=== PATIENT | female | born 1950 | race Two or more races ===

== ENCOUNTER 2023-04-15 05:00 | Day surgery (SDC) | payer OTHER ==
[~2023-04-15] VITALS: Ht 154.9 cm; Wt 59.0 kg
[~2023-04-15 05:00] MED LIST: LIPITOR20 MG PO; MULTIPLE VITAM1 EAC2 PO; PRILOSEC10 MG PO; ZOLOFT50 MG PO
[2023-04-15] MEDS ORDERED: OXYC1TAB9 PO (09:22)
== END 2023-04-15 13:10 | disposition home or self-care (01) ==
LOC: CIR.AMB 05:00
PROVIDERS: ATTEND Surgery
DX: K64.2 Third degree hemorrhoids (principal); Z88.2 Allergy status to sulfonamides; Z88.1 Allergy status to other antibiotic agents

== ENCOUNTER 2023-04-25 04:46 | Emergency (ER) | payer OTHER ==
[~2023-04-25] VITALS: Ht 154.9 cm; Wt 59.0 kg
[~2023-04-25 04:46] MED LIST changes: +OXYC1TAB9 PO
[2023-04-25 07:24] LABS: HEMATOCRIT 39.5 % (36.0-45.00); HEMOGLOBIN 13.5 g/dL (12.0-15.00); MEAN CELL VOLUME 87.9 fL (80.00-100.00); MEAN CORPUSCULAR HGB CONC 34.1 g/dl (32.0-36.0); PLATELET COUNT 231 K/uL (150-450)
[2023-04-25 08:08] LABS: INR 1.01; PROTHROMBIN TIME 10.6 SECONDS (9.0-11.5)
[2023-04-25 08:12] LABS: PARTIAL THROMBOPLASTIN TIME < 20.0 SECONDS (22.0-34.0)
== END 2023-04-25 11:27 | disposition home or self-care (01) ==
LOC: ER 04:47
PROVIDERS: General Practice
DX: K62.5 Hemorrhage of anus and rectum (principal); Z88.2 Allergy status to sulfonamides